=== PATIENT | male | born 1945 | race Caucasian/White ===

== ENCOUNTER 2019-05-02 14:28 | Inpatient (IN) ==
[2019-05-02] MEDS ORDERED: Naloxone 0.4 MG/ML INJ IVP PRN (17:14)
[2019-05-02] MEDS ORDERED: methylPREDNISolone 125 MG/2 ML VIAL IVP ONE (17:23)
[2019-05-02] MEDS ORDERED: *HR* Warfarin 2 MG TABLET PO SCH (17:30)
[2019-05-02] MEDS ORDERED: Warfarin perPT PO PRN (18:03)
[2019-05-02 18:04] LABS: White Blood Count 20.4 K/mcL (4.3-11.1)
[2019-05-02 18:05] LABS: Basophils # 0.1 K/mcL (0.0-0.2); Basophils % 0.3 %; Hematocrit 41.2 % (37.5-50.1); Hemoglobin 12.8 g/dL (12.9-16.9); Immature Granulocytes % 0.9 % (0-4); Lymphocytes % 4.9 %; Mean Corpuscular HGB Conc 31.1 g/dL (31.6-35.5); Mean Corpuscular Hemoglobin 29.2 pg (28.0-33.3); Mean Corpuscular Volume 94.1 fL (83.0-100.0); Mean Platelet Volume 10.7 fL (9.4-12.4); Monocytes # 2.5 K/mcL (0.0-1.3); Monocytes % 12.4 %; Neutrophils # 16.6 K/mcL (1.6-8.9); Platelet Count 218 K/mcL (140-400); Red Blood Count 4.38 M/mcL (4.19-5.50); Red Cell Distribution Width 17.2 % (11.5-14.5); Segmented Neutrophils % 81.5 %
[2019-05-02] MEDS ORDERED: *HR* Warfarin 3 MG TABLET PO ONE (18:15)
[2019-05-02 18:24] LABS: Potassium 4.7 mEq/L (3.5-5.1)
[2019-05-02 18:25] LABS: Albumin 3.4 g/dL (3.5-5.7); Bilirubin,Direct 0.3 mg/dL (0.0-0.2); Bilirubin,Indirect 0.5 mg/dL (0.0-1.0); Bilirubin,Total 0.8 mg/dL (0.3-1.0); Globulin 3.3 g/dL (2.4-3.5); Total Protein 6.7 g/dL (6.4-8.9)
[2019-05-02] MEDS: Ipratropium/Albuterol Neb 3 ML IH SCH ×2 (18:55)
[2019-05-02] MEDS ORDERED: *HR* Heparin 5,000 UNIT/ML VIAL IVP ONE (19:28)
[2019-05-02] MEDS ORDERED: *HR* Heparin 5,000 UNIT/ML VIAL IVP PRN ×2 (19:28)
[2019-05-02] MEDS ORDERED: Heparin 25,000 UNIT/250 ML D5W 25,000 UNIT/250 ML IV.SOLN IVC SCH (19:30)
[2019-05-02] MEDS ORDERED: Ondansetron ODT 4 MG TAB.RAPDIS SL PRN (20:41)
[2019-05-02] MEDS ORDERED: Nitroglycerin 0.4 MG TAB.SUBL SL PRN (20:41)
[2019-05-02] MEDS ORDERED: 0.9 % Sodium Chloride 1,000 ML IVC SCH (20:45)
[2019-05-02] MEDS: Piperacillin/Tazobactam 3.375 GM in 0.9 % Sodium Chloride Mini Bag 100 ML IVPB SCH ×2 (21:08→22:52)
[2019-05-02] MEDS: MethylPREDNISolone 40 MG/ML VIAL IVP SCH (23:43)
[2019-05-03] MEDS: Ipratropium/Albuterol Neb 3 ML IH SCH ×7 (00:38→23:27)
[2019-05-03 05:25] LABS: Basophils % 0.1 %; Hematocrit 38.9 % (37.5-50.1); Hemoglobin 12.5 g/dL (12.9-16.9); Lymphocytes # 0.5 K/mcL (0.6-4.6); Lymphocytes % 2.7 %; Mean Corpuscular HGB Conc 32.1 g/dL (31.6-35.5); Mean Corpuscular Hemoglobin 30.5 pg (28.0-33.3); Mean Corpuscular Volume 94.9 fL (83.0-100.0); Monocytes # 0.4 K/mcL (0.0-1.3); Monocytes % 2.2 %; Neutrophils # 17.6 K/mcL (1.6-8.9); Platelet Count 202 K/mcL (140-400); Red Cell Distribution Width 17.1 % (11.5-14.5); White Blood Count 18.7 K/mcL (4.3-11.1)
[2019-05-03 05:44] LABS: Calcium 8.7 mg/dL (8.6-10.3); Potassium 5.2 mEq/L (3.5-5.1)
[2019-05-03 05:45] LABS: Chol/HDL Ratio 3.9 (0-4.9)
[2019-05-03 05:54] LABS: INR 1.7
[2019-05-03 06:00] LABS: Thyroid Stimulating Hormone 1.364 mcIU/mL (0.340-5.600)
[2019-05-03 06:23] LABS: Folate > 22.3 ng/mL (3.0-16.0); Vitamin B12 406 pg/mL (250-1100)
[2019-05-03] MEDS: Piperacillin/Tazobactam 3.375 GM in 0.9 % Sodium Chloride Mini Bag 100 ML IVPB SCH ×2 (08:52→16:55)
[2019-05-03] MEDS: Aspirin Enteric Coated 81 MG Tablet PO SCH (08:52)
[2019-05-03] MEDS: MethylPREDNISolone 40 MG/ML VIAL IVP SCH (08:52)
[2019-05-03] MEDS ORDERED: RaNITIdine Oral Soln 75 MG/5 ML UDC PO SCH (09:00)
[2019-05-03] MEDS ORDERED: Metoprolol 100 MG TABLET PO SCH (09:00)
[2019-05-03] MEDS ORDERED: *HR* Dextrose 50 % in Water (Syg) 50 ML SYRINGE IVP PRN (09:17)
[2019-05-03] MEDS ORDERED: D5% in Water 1,000 ML IVC PRN (09:17)
[2019-05-03] MEDS ORDERED: Dextrose Gel 15 GM/37.5 ML TUBE PO PRN ×2 (09:17)
[2019-05-03 09:35] LABS: Troponin I 0.09 ng/mL (< 0.04)
[2019-05-03] MEDS ORDERED: Insulin LISPRO 300 UNITS/3 ML VIAL SQ SCH (12:00)
[2019-05-03] MEDS ORDERED: 0.9 % Sodium Chloride 1,000 ML IVC SCH (14:15)
[2019-05-03] MEDS ORDERED: Insulin LISPRO 300 UNITS/3 ML VIAL SQ ONE (14:20)
[2019-05-03] MEDS: Insulin LISPRO 300 UNITS/3 ML VIAL SQ SCH ×3 (17:04→21:48)
[2019-05-03] MEDS ORDERED: Warfarin perPT PO PRN (18:00)
[2019-05-03] MEDS ORDERED: *HR* Warfarin 3 MG TABLET PO ONE (18:00)
[2019-05-03] MEDS ORDERED: NON-FORMULARY MEDICATION 1 EACH EACH (Ranitidine Hcl [Zantac] 150 MG) PO SCH (21:00)
[2019-05-03] MEDS ORDERED: Famotidine 20 MG TABLET PO SCH (21:00)
[2019-05-03] MEDS: Gabapentin 300 MG CAPSULE PO SCH (21:47)
[2019-05-03] MEDS: Famotidine 20 MG TABLET PO SCH (23:29)
[2019-05-04] MEDS: Piperacillin/Tazobactam 3.375 GM in 0.9 % Sodium Chloride Mini Bag 100 ML IVPB SCH ×4 (00:11→23:47)
[2019-05-04] MEDS: Ipratropium/Albuterol Neb 3 ML IH SCH ×7 (02:27→19:48)
[2019-05-04 05:50] LABS: Basophils % 0.2 %; Hematocrit 39.3 % (37.5-50.1); Hemoglobin 12.3 g/dL (12.9-16.9); Immature Granulocytes % 1.8 % (0-4); Lymphocytes # 0.5 K/mcL (0.6-4.6); Mean Corpuscular HGB Conc 31.3 g/dL (31.6-35.5); Mean Corpuscular Hemoglobin 29.4 pg (28.0-33.3); Mean Platelet Volume 11.2 fL (9.4-12.4); Monocytes # 1.4 K/mcL (0.0-1.3); Monocytes % 5.8 %; Neutrophils # 21.1 K/mcL (1.6-8.9); Platelet Count 212 K/mcL (140-400); Red Blood Count 4.18 M/mcL (4.19-5.50); Red Cell Distribution Width 16.8 % (11.5-14.5); Segmented Neutrophils % 90.2 %; White Blood Count 23.4 K/mcL (4.3-11.1)
[2019-05-04 05:54] LABS: Basophils # 0.1 K/mcL (0.0-0.2)
[2019-05-04 05:55] LABS: Platelet Estimate Normal (Normal)
[2019-05-04 05:57] LABS: Prothrombin Time 22.3 Seconds (9.4-12.1)
[2019-05-04 06:14] LABS: Calcium 8.8 mg/dL (8.6-10.3); Potassium 4.5 mEq/L (3.5-5.1)
[2019-05-04] MEDS: Gabapentin 300 MG CAPSULE PO SCH ×3 (08:27→21:28)
[2019-05-04] MEDS: Cholecalciferol (D-3) 1,000 UNIT (25MCG) TABLET PO SCH (08:27)
[2019-05-04] MEDS: Aspirin Enteric Coated 81 MG Tablet PO SCH (08:27)
[2019-05-04] MEDS: Insulin LISPRO 300 UNITS/3 ML VIAL SQ SCH ×4 (08:27→21:27)
[2019-05-04] MEDS: Furosemide 40 MG TABLET PO SCH (09:16)
[2019-05-04] MEDS ORDERED: Gadolinium Contrast Agent (WT Based) IV PRN ×2 (10:29→15:20)
[2019-05-04] MEDS ORDERED: Isovue-370 500 ML BOTTLE IVP ONE (10:44)
[2019-05-04] MEDS ORDERED: 0.9 % Sodium Chloride 1,000 ML IVC SCH (11:00)
[2019-05-04] MEDS ORDERED: 0.9 % Sodium Chloride 500 ML IVC SCH (12:00)
[2019-05-04] MEDS: Insulin DETEMIR 100 UNIT/ML X5UNITS SQ SCH ×2 (14:28→21:27)
[2019-05-04] MEDS ORDERED: MethylPREDNISolone 40 MG/ML VIAL IVP SCH (16:00)
[2019-05-04 16:34] LABS: Estimated Average Glucose 160 mg/dl
[2019-05-04] MEDS ORDERED: Furosemide 20 MG TABLET PO SCH (18:00)
[2019-05-04] MEDS ORDERED: *HR* Warfarin 3 MG TABLET PO ONE (18:00)
[2019-05-04] MEDS: Famotidine 20 MG TABLET PO SCH (21:23)
[2019-05-05] MEDS: Ipratropium/Albuterol Neb 3 ML IH SCH ×7 (00:15→23:58)
[2019-05-05 06:08] LABS: Basophils % 0.2 %; Hemoglobin 12.3 g/dL (12.9-16.9); Lymphocytes % 6.5 %; Mean Corpuscular HGB Conc 30.8 g/dL (31.6-35.5); Mean Corpuscular Hemoglobin 29.3 pg (28.0-33.3); Mean Corpuscular Volume 95.2 fL (83.0-100.0); Mean Platelet Volume 11.1 fL (9.4-12.4); Monocytes # 1.6 K/mcL (0.0-1.3); Monocytes % 10.3 %; Neutrophils # 12.6 K/mcL (1.6-8.9); Platelet Count 211 K/mcL (140-400); Red Cell Distribution Width 17.1 % (11.5-14.5); White Blood Count 15.4 K/mcL (4.3-11.1)
[2019-05-05 06:10] LABS: INR 2.5
[2019-05-05 06:32] LABS: Calcium 9.1 mg/dL (8.6-10.3); Potassium 4.6 mEq/L (3.5-5.1)
[2019-05-05] MEDS: Piperacillin/Tazobactam 3.375 GM in 0.9 % Sodium Chloride Mini Bag 100 ML IVPB SCH ×3 (08:35→23:38)
[2019-05-05] MEDS: Insulin LISPRO 300 UNITS/3 ML VIAL SQ SCH ×4 (08:38→23:06)
[2019-05-05] MEDS: Insulin DETEMIR 100 UNIT/ML X5UNITS SQ SCH ×2 (08:40→20:41)
[2019-05-05] MEDS: Aspirin Enteric Coated 81 MG Tablet PO SCH (10:53)
[2019-05-05] MEDS: Cholecalciferol (D-3) 1,000 UNIT (25MCG) TABLET PO SCH (10:53)
[2019-05-05] MEDS: Gabapentin 300 MG CAPSULE PO SCH ×3 (10:53→20:41)
[2019-05-05] MEDS ORDERED: *HR* Warfarin 3 MG TABLET PO ONE (18:00)
[2019-05-05] MEDS: Famotidine 20 MG TABLET PO SCH (20:41)
[2019-05-06 02:48] LABS: Basophils # 0.1 K/mcL (0.0-0.2); Basophils % 0.4 %; Eosinophils % 0.1 %; Hematocrit 38.3 % (37.5-50.1); Immature Granulocytes % 1.7 % (0-4); Lymphocytes # 1.4 K/mcL (0.6-4.6); Lymphocytes % 10.8 %; Mean Corpuscular HGB Conc 31.3 g/dL (31.6-35.5); Mean Corpuscular Volume 95.8 fL (83.0-100.0); Mean Platelet Volume 11.2 fL (9.4-12.4); Monocytes # 1.7 K/mcL (0.0-1.3); Monocytes % 12.9 %; Neutrophils # 9.8 K/mcL (1.6-8.9); Platelet Count 206 K/mcL (140-400); Segmented Neutrophils % 74.1 %; White Blood Count 13.2 K/mcL (4.3-11.1)
[2019-05-06 03:00] LABS: BUN/Creatinine Ratio 28 (6-26); Blood Urea Nitrogen 38 mg/dL (8-23); Calcium 8.9 mg/dL (8.6-10.3); Carbon Dioxide 27 mEq/L (23-29); Chloride 109 mEq/L (98-107); Glucose 81 mg/dL (70-105); Osmolality,Calculated 304 (280-300); Potassium 4.2 mEq/L (3.5-5.1); Sodium 143 mEq/L (136-145); eGFR For African Americans > 60 (> 60); eGFR For Non-African Americans 52 (> 60)
[2019-05-06 03:02] LABS: INR 2.4; Prothrombin Time 27.2 Seconds (9.4-12.1)
[2019-05-06] MEDS: Ipratropium/Albuterol Neb 3 ML IH SCH ×7 (03:46→23:58)
[2019-05-06] MEDS ORDERED: Lidocaine 1% 20 ML MDV ONE (07:34)
[2019-05-06] MEDS ORDERED: *HR* Propofol 200 MG/20 ML VIAL IVP ONE (07:52)
[2019-05-06] MEDS ORDERED: Lidocaine -MPF 2% 2 ML VIAL ONE (07:54)
[2019-05-06] MEDS ORDERED: Vancomycin 1,000 MG, 0.9 % Sodium Chloride 1,000 ML IR ONE (08:00)
[2019-05-06] MEDS: Insulin DETEMIR 100 UNIT/ML X5UNITS SQ SCH ×2 (09:19→21:53)
[2019-05-06] MEDS: Insulin LISPRO 300 UNITS/3 ML VIAL SQ SCH ×4 (09:19→21:53)
[2019-05-06] MEDS: Gabapentin 300 MG CAPSULE PO SCH ×3 (09:29→21:53)
[2019-05-06] MEDS: Aspirin Enteric Coated 81 MG Tablet PO SCH (09:29)
[2019-05-06] MEDS: Cholecalciferol (D-3) 1,000 UNIT (25MCG) TABLET PO SCH (09:29)
[2019-05-06] MEDS: Piperacillin/Tazobactam 3.375 GM in 0.9 % Sodium Chloride Mini Bag 100 ML IVPB SCH ×2 (09:29→16:30)
[2019-05-06] MEDS ORDERED: Furosemide 40 MG/4 ML VIAL IVP ONE (12:46)
[2019-05-06] MEDS: Acetaminophen 325 MG TABLET PO PRN (12:47)
[2019-05-06] MEDS ORDERED: *HR* Warfarin 3 MG TABLET PO ONE (18:00)
[2019-05-06] MEDS: Famotidine 20 MG TABLET PO SCH (21:53)
[2019-05-07] MEDS: Piperacillin/Tazobactam 3.375 GM in 0.9 % Sodium Chloride Mini Bag 100 ML IVPB SCH ×3 (00:26→15:16)
[2019-05-07] MEDS: *HR* HYDROcodone/Acet 5/325 mg TABLET PO PRN ×2 (02:32→15:06)
[2019-05-07] MEDS: Ipratropium/Albuterol Neb 3 ML IH SCH ×6 (03:51→23:25)
[2019-05-07 03:52] LABS: Basophils # 0.1 K/mcL (0.0-0.2); Basophils % 0.7 %; Eosinophils % 0.3 %; Hematocrit 40.4 % (37.5-50.1); Hemoglobin 12.8 g/dL (12.9-16.9); Lymphocytes # 1.2 K/mcL (0.6-4.6); Lymphocytes % 8.9 %; Mean Corpuscular HGB Conc 31.7 g/dL (31.6-35.5); Mean Corpuscular Hemoglobin 29.8 pg (28.0-33.3); Mean Platelet Volume 10.8 fL (9.4-12.4); Monocytes # 1.3 K/mcL (0.0-1.3); Monocytes % 9.6 %; Neutrophils # 10.8 K/mcL (1.6-8.9); Platelet Count 209 K/mcL (140-400); Red Cell Distribution Width 16.6 % (11.5-14.5); Segmented Neutrophils % 78.5 %; White Blood Count 13.7 K/mcL (4.3-11.1)
[2019-05-07 04:01] LABS: INR 2.4; Prothrombin Time 27.3 Seconds (9.4-12.1)
[2019-05-07 04:08] LABS: BUN/Creatinine Ratio 22 (6-26); Blood Urea Nitrogen 28 mg/dL (8-23); Calcium 9.2 mg/dL (8.6-10.3); Carbon Dioxide 32 mEq/L (23-29); Chloride 102 mEq/L (98-107); Glucose 105 mg/dL (70-105); Osmolality,Calculated 302 (280-300); Potassium 3.8 mEq/L (3.5-5.1); Sodium 143 mEq/L (136-145); eGFR For African Americans > 60 (> 60); eGFR For Non-African Americans 55 (> 60)
[2019-05-07] MEDS: Insulin LISPRO 300 UNITS/3 ML VIAL SQ SCH ×4 (07:33→21:35)
[2019-05-07] MEDS: Gabapentin 300 MG CAPSULE PO SCH ×3 (09:06→21:35)
[2019-05-07] MEDS: Cholecalciferol (D-3) 1,000 UNIT (25MCG) TABLET PO SCH (09:06)
[2019-05-07] MEDS: Furosemide 40 MG TABLET PO SCH (09:06)
[2019-05-07] MEDS: Aspirin Enteric Coated 81 MG Tablet PO SCH (09:06)
[2019-05-07] MEDS: Insulin DETEMIR 100 UNIT/ML X5UNITS SQ SCH ×2 (09:07→21:35)
[2019-05-07] MEDS ORDERED: *HR* Warfarin 3 MG TABLET PO ONE (18:00)
[2019-05-07] MEDS: Famotidine 20 MG TABLET PO SCH (21:35)
[2019-05-08] MEDS: Piperacillin/Tazobactam 3.375 GM in 0.9 % Sodium Chloride Mini Bag 100 ML IVPB SCH ×3 (00:06→15:12)
[2019-05-08] MEDS: Ipratropium/Albuterol Neb 3 ML IH SCH ×5 (03:40→19:50)
[2019-05-08 05:38] LABS: INR 2.3; Prothrombin Time 25.7 Seconds (9.4-12.1)
[2019-05-08] MEDS: Insulin LISPRO 300 UNITS/3 ML VIAL SQ SCH ×4 (07:21→20:42)
[2019-05-08] MEDS: Cholecalciferol (D-3) 1,000 UNIT (25MCG) TABLET PO SCH (07:27)
[2019-05-08] MEDS: Aspirin Enteric Coated 81 MG Tablet PO SCH (07:27)
[2019-05-08] MEDS: Acetaminophen 325 MG TABLET PO PRN (07:27)
[2019-05-08] MEDS: Furosemide 40 MG TABLET PO SCH (07:28)
[2019-05-08] MEDS: Gabapentin 300 MG CAPSULE PO SCH ×3 (07:28→20:43)
[2019-05-08] MEDS: Insulin DETEMIR 100 UNIT/ML X5UNITS SQ SCH ×2 (07:43→20:43)
[2019-05-08 12:20] LABS: Basophils # 0.1 K/mcL (0.0-0.2); Basophils % 0.6 %; Eosinophils % 0.2 %; Hemoglobin 13.2 g/dL (12.9-16.9); Immature Granulocytes % 2.8 % (0-4); Lymphocytes % 5.9 %; Mean Corpuscular HGB Conc 32.2 g/dL (31.6-35.5); Mean Corpuscular Hemoglobin 30.1 pg (28.0-33.3); Mean Corpuscular Volume 93.6 fL (83.0-100.0); Monocytes # 1.3 K/mcL (0.0-1.3); Monocytes % 7.7 %; Neutrophils # 13.5 K/mcL (1.6-8.9); Platelet Count 245 K/mcL (140-400); Red Blood Count 4.38 M/mcL (4.19-5.50); Red Cell Distribution Width 16.4 % (11.5-14.5); Segmented Neutrophils % 82.8 %; White Blood Count 16.3 K/mcL (4.3-11.1)
[2019-05-08] MEDS: *HR* HYDROcodone/Acet 5/325 mg TABLET PO PRN ×2 (16:23→20:43)
[2019-05-08 16:47] LABS: Adenovirus Not Detected (Not Detect); Bordetella Pertussis Not Detected (Not Detect); Chlamydophila pneumoniae Not Detected (Not Detect); Coronavirus 229E Not Detected (Not Detect); Coronavirus HKU1 Not Detected (Not Detect); Coronavirus NL63 Not Detected (Not Detect); Coronavirus OC43 Not Detected (Not Detect); Human Metapneumovirus Not Detected (Not Detect); Human Rhinovirus/Enterovirus DETECTED (Not Detect); Influenza A Subtype 2009 H1 Not Detected (Not Detect); Influenza B Not Detected (Not Detect); Mycoplasma pneumoniae Not Detected (Not Detect); Parainfluenza Virus 1 Not Detected (Not Detect); Parainfluenza Virus 2 Not Detected (Not Detect); Parainfluenza Virus 3 Not Detected (Not Detect); Parainfluenza Virus 4 Not Detected (Not Detect); Respiratory Syncytial Virus Not Detected (Not Detect)
[2019-05-08] MEDS ORDERED: *HR* Warfarin 3 MG TABLET PO ONE (18:00)
[2019-05-08] MEDS: Famotidine 20 MG TABLET PO SCH (20:43)
[2019-05-09] MEDS: Piperacillin/Tazobactam 3.375 GM in 0.9 % Sodium Chloride Mini Bag 100 ML IVPB SCH ×3 (00:16→16:58)
[2019-05-09] MEDS: Ipratropium/Albuterol Neb 3 ML IH SCH ×6 (00:26→20:20)
[2019-05-09 05:38] LABS: VBG HCO3 33 mEq/L (21-27); VBG PCO2 55 mmHg (41-51); VBG PH 7.39 pH Units (7.32-7.42); VBG PO2 128 mmHg (25-50)
[2019-05-09 05:41] LABS: Basophils # 0.1 K/mcL (0.0-0.2); Basophils % 0.8 %; Eosinophils # 0.1 K/mcL (0.0-0.6); Eosinophils % 0.5 %; Hematocrit 41.4 % (37.5-50.1); Immature Granulocytes % 4.1 % (0-4); Lymphocytes # 1.2 K/mcL (0.6-4.6); Lymphocytes % 8.6 %; Mean Corpuscular HGB Conc 31.4 g/dL (31.6-35.5); Mean Corpuscular Hemoglobin 29.1 pg (28.0-33.3); Mean Corpuscular Volume 92.8 fL (83.0-100.0); Monocytes # 1.3 K/mcL (0.0-1.3); Monocytes % 9.2 %; Neutrophils # 11.1 K/mcL (1.6-8.9); Platelet Count 252 K/mcL (140-400); Red Blood Count 4.46 M/mcL (4.19-5.50); Red Cell Distribution Width 16.3 % (11.5-14.5); Segmented Neutrophils % 76.8 %; White Blood Count 14.5 K/mcL (4.3-11.1)
[2019-05-09 05:54] LABS: INR 2.1; Prothrombin Time 23.6 Seconds (9.4-12.1)
[2019-05-09 05:58] LABS: Calcium 8.8 mg/dL (8.6-10.3); Potassium 3.3 mEq/L (3.5-5.1)
[2019-05-09] MEDS: Insulin LISPRO 300 UNITS/3 ML VIAL SQ SCH ×3 (08:34→18:05)
[2019-05-09] MEDS: Furosemide 40 MG TABLET PO SCH (08:49)
[2019-05-09] MEDS: Gabapentin 300 MG CAPSULE PO SCH ×2 (08:49→16:57)
[2019-05-09] MEDS: Cholecalciferol (D-3) 1,000 UNIT (25MCG) TABLET PO SCH (08:49)
[2019-05-09] MEDS: Aspirin Enteric Coated 81 MG Tablet PO SCH (08:49)
[2019-05-09] MEDS: Insulin DETEMIR 100 UNIT/ML X5UNITS SQ SCH (08:54)
[2019-05-09] MEDS: *HR* HYDROcodone/Acet 5/325 mg TABLET PO PRN (09:53)
[2019-05-09 16:55] VITALS: BP 151/77
[2019-05-09] MEDS ORDERED: *HR* Warfarin 3 MG TABLET PO ONE (18:00)
[2019-05-10] MEDS: Ipratropium/Albuterol Neb 3 ML IH SCH (00:21)
== END 2019-05-10 06:50 | DRG 853 ==
LOC: 2ANU → SUATTDRO 16:45 → 2ANU 05-10 01:18
PROVIDERS: ADMIT Pharmacist; ATTEND Internal Medicine

== ENCOUNTER 2019-05-12 09:49 | Inpatient (IN) ==
[2019-05-12] MEDS ORDERED: 0.9 % Sodium Chloride 1,000 ML IVC ONE (09:57)
[2019-05-12] MEDS ORDERED: Ipratropium/Albuterol Neb 3 ML IH ONE (10:11)
[2019-05-12] MEDS ORDERED: Piperacillin/Tazobactam 3.375 GM in 0.9 % Sodium Chloride Mini Bag 100 ML IVPB ONE (10:39)
[2019-05-12 10:45] LABS: Basophils # 0.1 K/mcL (0.0-0.2); Basophils % 0.6 %; Eosinophils % 0.1 %; Hematocrit 35.8 % (37.5-50.1); Immature Granulocytes % 3.5 % (0-4); Lymphocytes # 1.5 K/mcL (0.6-4.6); Lymphocytes % 9.1 %; Mean Corpuscular HGB Conc 30.2 g/dL (31.6-35.5); Mean Corpuscular Hemoglobin 28.7 pg (28.0-33.3); Mean Corpuscular Volume 95.2 fL (83.0-100.0); Mean Platelet Volume 10.7 fL (9.4-12.4); Monocytes # 2.1 K/mcL (0.0-1.3); Monocytes % 12.8 %; Platelet Count 291 K/mcL (140-400); Red Blood Count 3.76 M/mcL (4.19-5.50); Red Cell Distribution Width 16.7 % (11.5-14.5); Segmented Neutrophils % 73.9 %; White Blood Count 16.2 K/mcL (4.3-11.1)
[2019-05-12 10:47] LABS: ABG Base Excess -1 mEq/L (-2 to 3); ABG HCO3 28 mEq/L (21-27); ABG Oxygen Saturation 96 % (95-98); ABG PCO2 62 mmHg (35-45); ABG PH 7.26 pH Units (7.32-7.45); ABG PO2 97 mmHg (85-104); ABG TCO2 30 mEq/L (20-26)
[2019-05-12 10:48] LABS: Hemoglobin 10.8 g/dL (12.9-16.9)
[2019-05-12 11:09] LABS: Alanine Aminotransferase 22 Units/L (7-52); Albumin 3.2 g/dL (3.5-5.7); Alkaline Phosphatase 57 Units/L (34-104); Aspartate Amino Transferase 24 Units/L (13-39); BUN/Creatinine Ratio 17 (6-26); Bilirubin,Direct 0.1 mg/dL (0.0-0.2); Bilirubin,Indirect 0.5 mg/dL (0.0-1.0); Bilirubin,Total 0.6 mg/dL (0.3-1.0); Blood Urea Nitrogen 54 mg/dL (8-23); C-Reactive Protein > 300 mg/L (Less than 10); Calcium 8.8 mg/dL (8.6-10.3); Carbon Dioxide 24 mEq/L (23-29); Chloride 103 mEq/L (98-107); Globulin 3.3 g/dL (2.4-3.5); Glucose 152 mg/dL (70-105); Osmolality,Calculated 306 (280-300); Potassium 4.5 mEq/L (3.5-5.1); Sodium 139 mEq/L (136-145); Total Protein 6.5 g/dL (6.4-8.9); Troponin I 0.12 ng/mL (< 0.04); eGFR For African Americans 23 (> 60); eGFR For Non-African Americans 19 (> 60)
[2019-05-12] MEDS ORDERED: Naloxone 0.4 MG/ML INJ IVP PRN (11:41)
[2019-05-12] MEDS ORDERED: Ondansetron 4 MG/2 ML VIAL IVP PRN (11:41)
[2019-05-12 12:01] LABS: INR 2.6; Prothrombin Time 29.9 Seconds (9.4-12.1)
[2019-05-12 12:03] LABS: Activated Partial Thrombo Time 40.5 Seconds (26.0-36.0)
[2019-05-12 13:48] LABS: Bilirubin,Urine Moderate (Negative); Blood,Urine Negative (Negative); Clarity,Urine Clear (Clear); Color,Urine Dark Yellow (Yellow); Glucose,Urine (UA) Normal (Normal); Ketones,Urine Trace mg/dL (Negative); Leukocyte Esterase,Urine Negative (Negative); Nitrite,Urine Negative (Negative); Protein,Urine Trace mg/dL (Neg-Trace); Specific Gravity,Urine 1.022 (1.010-1.025); Urobilinogen,Urine Normal (Normal)
[2019-05-12] MEDS ORDERED: D5% in Water 1,000 ML IVC PRN (13:53)
[2019-05-12] MEDS ORDERED: *HR* Dextrose 50 % in Water (Syg) 50 ML SYRINGE IVP PRN (13:53)
[2019-05-12] MEDS ORDERED: Dextrose Gel 15 GM/37.5 ML TUBE PO PRN ×2 (13:53)
[2019-05-12] MEDS ORDERED: Acetaminophen 325 MG TABLET PO PRN (13:57)
[2019-05-12] MEDS: Ringers Solution, Lactated 1,000 ML IVC SCH ×2 (14:27→22:02)
[2019-05-12] MEDS: Acetaminophen IV 1,000 MG/100 ML INFUS..BTL IVPB SCH ×2 (15:21→21:39)
[2019-05-12] MEDS: Albuterol 2.5 MG/3 ML NEBULIZER IH SCH ×3 (16:11→23:32)
[2019-05-12] MEDS ORDERED: 0.9 % Sodium Chloride 500 ML IV ONE (17:03)
[2019-05-12] MEDS: Insulin LISPRO 300 UNITS/3 ML VIAL SQ SCH ×2 (17:33→22:03)
[2019-05-12] MEDS ORDERED: Warfarin perPT PO PRN (18:00)
[2019-05-12] MEDS ORDERED: *HR* Warfarin 1 MG TABLET PO ONE ×2 (18:00)
[2019-05-12] MEDS: Magnesium Oxide 400 MG TABLET PO SCH (18:04)
[2019-05-12] MEDS: Nystatin SUSP 5 ML UD.LIQ PO SCH ×2 (18:04→21:43)
[2019-05-12] MEDS ORDERED: Insulin DETEMIR 100 UNIT/ML X5UNITS SQ SCH (21:00)
[2019-05-12] MEDS: Piperacillin/Tazobactam 3.375 GM in 0.9 % Sodium Chloride Mini Bag 100 ML IVPB SCH (21:58)
[2019-05-12] MEDS: Insulin DETEMIR 100 UNIT/ML X5UNITS SQ SCH (22:04)
[2019-05-13] MEDS: Albuterol 2.5 MG/3 ML NEBULIZER IH SCH ×3 (03:05→11:07)
[2019-05-13] MEDS: Acetaminophen IV 1,000 MG/100 ML INFUS..BTL IVPB SCH ×4 (03:23→20:41)
[2019-05-13 04:09] LABS: ABG Base Excess 2 mEq/L (-2 to 3); ABG HCO3 29 mEq/L (21-27); ABG Oxygen Saturation 95 % (95-98); ABG PCO2 55 mmHg (35-45); ABG PH 7.33 pH Units (7.32-7.45); ABG PO2 82 mmHg (85-104); ABG TCO2 30 mEq/L (20-26); Blood Gas Modality BiLevel
[2019-05-13] MEDS: Insulin LISPRO 300 UNITS/3 ML VIAL SQ SCH ×4 (07:58→20:02)
[2019-05-13] MEDS: Famotidine 20 MG TABLET PO SCH (07:58)
[2019-05-13] MEDS: Aspirin Enteric Coated 81 MG Tablet PO SCH (07:58)
[2019-05-13] MEDS: Nystatin SUSP 5 ML UD.LIQ PO SCH ×4 (07:59→19:42)
[2019-05-13] MEDS: Collagenase Oint 1 APPL GRAM TP SCH (09:53)
[2019-05-13 10:14] LABS: Basophils # 0.1 K/mcL (0.0-0.2); Basophils % 0.4 %; Eosinophils % 0.2 %; Hematocrit 35.2 % (37.5-50.1); Hemoglobin 10.7 g/dL (12.9-16.9); Immature Granulocytes % 1.7 % (0-4); Lymphocytes # 0.9 K/mcL (0.6-4.6); Lymphocytes % 5.7 %; Mean Corpuscular HGB Conc 30.4 g/dL (31.6-35.5); Mean Corpuscular Hemoglobin 29.3 pg (28.0-33.3); Mean Corpuscular Volume 96.4 fL (83.0-100.0); Mean Platelet Volume 10.8 fL (9.4-12.4); Monocytes # 1.8 K/mcL (0.0-1.3); Monocytes % 11.2 %; Neutrophils # 12.7 K/mcL (1.6-8.9); Platelet Count 284 K/mcL (140-400); Red Blood Count 3.65 M/mcL (4.19-5.50); Red Cell Distribution Width 16.4 % (11.5-14.5); Segmented Neutrophils % 80.8 %; White Blood Count 15.7 K/mcL (4.3-11.1)
[2019-05-13 10:32] LABS: Calcium 8.8 mg/dL (8.6-10.3); Magnesium 2.3 mg/dL (1.6-2.6); Potassium 4.4 mEq/L (3.5-5.1)
[2019-05-13] MEDS: Piperacillin/Tazobactam 3.375 GM in 0.9 % Sodium Chloride Mini Bag 100 ML IVPB SCH ×2 (11:43→21:42)
[2019-05-13] MEDS ORDERED: Furosemide 20 MG/2 ML VIAL IVP SCH (13:00)
[2019-05-13] MEDS: MethylPREDNISolone 40 MG/ML VIAL IVP SCH (14:50)
[2019-05-13] MEDS: Ipratropium/Albuterol Neb 3 ML IH SCH ×3 (15:15→20:20)
[2019-05-13] MEDS: Budesonide/Formoterol 160/4.5 1 PUFF INH IH SCH ×2 (15:15→20:20)
[2019-05-13] MEDS: Magnesium Oxide 400 MG TABLET PO SCH (19:42)
[2019-05-13] MEDS: Insulin DETEMIR 100 UNIT/ML X5UNITS SQ SCH (20:40)
[2019-05-13] MEDS ORDERED: *HR* LORazepam 2 MG/ML VIAL IVP ONE (23:53)
[2019-05-14] MEDS: MethylPREDNISolone 40 MG/ML VIAL IVP SCH ×3 (00:01→17:36)
[2019-05-14] MEDS: Ipratropium/Albuterol Neb 3 ML IH SCH ×7 (00:10→23:31)
[2019-05-14] MEDS ORDERED: Haloperidol Lactate 5 MG/ML VIAL IVP ONE ×3 (01:56→07:52)
[2019-05-14] MEDS: Acetaminophen IV 1,000 MG/100 ML INFUS..BTL IVPB SCH ×4 (02:53→20:22)
[2019-05-14] MEDS: Aspirin Enteric Coated 81 MG Tablet PO SCH (07:31)
[2019-05-14] MEDS: Famotidine 20 MG TABLET PO SCH (07:31)
[2019-05-14] MEDS: Nystatin SUSP 5 ML UD.LIQ PO SCH ×4 (07:32→20:22)
[2019-05-14] MEDS: Collagenase Oint 1 APPL GRAM TP SCH (07:32)
[2019-05-14] MEDS: Insulin LISPRO 300 UNITS/3 ML VIAL SQ SCH ×4 (07:41→20:23)
[2019-05-14] MEDS: Budesonide/Formoterol 160/4.5 1 PUFF INH IH SCH ×2 (07:57→20:11)
[2019-05-14] MEDS: Piperacillin/Tazobactam 3.375 GM in 0.9 % Sodium Chloride Mini Bag 100 ML IVPB SCH ×2 (10:44→17:42)
[2019-05-14 14:10] LABS: Basophils % 0.2 %; Hematocrit 36.3 % (37.5-50.1); Hemoglobin 11.2 g/dL (12.9-16.9); Lymphocytes # 0.5 K/mcL (0.6-4.6); Lymphocytes % 2.8 %; Mean Corpuscular HGB Conc 30.9 g/dL (31.6-35.5); Mean Platelet Volume 11.1 fL (9.4-12.4); Monocytes # 0.3 K/mcL (0.0-1.3); Monocytes % 1.7 %; Platelet Count 314 K/mcL (140-400); Red Blood Count 3.86 M/mcL (4.19-5.50); Segmented Neutrophils % 94.3 %; White Blood Count 16.9 K/mcL (4.3-11.1)
[2019-05-14 14:32] LABS: Calcium 9.2 mg/dL (8.6-10.3); Magnesium 2.7 mg/dL (1.6-2.6); Phosphorous 3.3 mg/dL (2.7-4.5); Potassium 4.5 mEq/L (3.5-5.1)
[2019-05-14] MEDS: Magnesium Oxide 400 MG TABLET PO SCH (17:37)
[2019-05-14] MEDS: Insulin DETEMIR 100 UNIT/ML X5UNITS SQ SCH (20:24)
[2019-05-15] MEDS: MethylPREDNISolone 40 MG/ML VIAL IVP SCH ×2 (00:08→09:10)
[2019-05-15] MEDS: Piperacillin/Tazobactam 3.375 GM in 0.9 % Sodium Chloride Mini Bag 100 ML IVPB SCH ×3 (01:44→17:51)
[2019-05-15] MEDS: Acetaminophen IV 1,000 MG/100 ML INFUS..BTL IVPB SCH ×2 (03:08→09:17)
[2019-05-15] MEDS: Ipratropium/Albuterol Neb 3 ML IH SCH ×5 (03:49→20:14)
[2019-05-15 05:00] LABS: Basophils % 0.1 %; Hematocrit 35.2 % (37.5-50.1); Hemoglobin 11.1 g/dL (12.9-16.9); Lymphocytes # 0.5 K/mcL (0.6-4.6); Lymphocytes % 2.9 %; Mean Corpuscular HGB Conc 31.5 g/dL (31.6-35.5); Mean Corpuscular Hemoglobin 29.6 pg (28.0-33.3); Mean Corpuscular Volume 93.9 fL (83.0-100.0); Mean Platelet Volume 11.3 fL (9.4-12.4); Monocytes # 0.4 K/mcL (0.0-1.3); Monocytes % 2.6 %; Neutrophils # 15.2 K/mcL (1.6-8.9); Platelet Count 291 K/mcL (140-400); Red Blood Count 3.75 M/mcL (4.19-5.50); Red Cell Distribution Width 15.9 % (11.5-14.5); Segmented Neutrophils % 93.4 %; White Blood Count 16.3 K/mcL (4.3-11.1)
[2019-05-15 05:31] LABS: Calcium 9.2 mg/dL (8.6-10.3); Magnesium 2.8 mg/dL (1.6-2.6); Potassium 4.8 mEq/L (3.5-5.1)
[2019-05-15] MEDS: Famotidine 20 MG TABLET PO SCH (09:10)
[2019-05-15] MEDS: Nystatin SUSP 5 ML UD.LIQ PO SCH ×4 (09:11→21:22)
[2019-05-15] MEDS: Aspirin Enteric Coated 81 MG Tablet PO SCH (09:11)
[2019-05-15] MEDS: Insulin LISPRO 300 UNITS/3 ML VIAL SQ SCH ×2 (09:13→17:57)
[2019-05-15 09:41] LABS: INR 2.9; Prothrombin Time 33.4 Seconds (9.4-12.1)
[2019-05-15] MEDS: Budesonide/Formoterol 160/4.5 1 PUFF INH IH SCH ×2 (11:02→20:14)
[2019-05-15] MEDS ORDERED: Acetaminophen 325 MG TABLET PO PRN (11:55)
[2019-05-15] MEDS ORDERED: Insulin LISPRO 300 UNITS/3 ML VIAL SQ SCH (11:56)
[2019-05-15] MEDS: Insulin DETEMIR 100 UNIT/ML X5UNITS SQ SCH ×2 (13:30→21:23)
[2019-05-15] MEDS: Magnesium Oxide 400 MG TABLET PO SCH (17:52)
[2019-05-15] MEDS: Collagenase Oint 1 APPL GRAM TP SCH (17:55)
[2019-05-16] MEDS: Piperacillin/Tazobactam 3.375 GM in 0.9 % Sodium Chloride Mini Bag 100 ML IVPB SCH ×3 (02:04→17:15)
[2019-05-16] MEDS: Ipratropium/Albuterol Neb 3 ML IH SCH ×5 (04:23→15:48)
[2019-05-16 06:45] LABS: Basophils % 0.1 %; Hematocrit 33.2 % (37.5-50.1); Hemoglobin 10.6 g/dL (12.9-16.9); Immature Granulocytes % 0.8 % (0-4); Lymphocytes # 0.7 K/mcL (0.6-4.6); Lymphocytes % 6.1 %; Mean Corpuscular HGB Conc 31.9 g/dL (31.6-35.5); Mean Corpuscular Hemoglobin 29.8 pg (28.0-33.3); Mean Corpuscular Volume 93.3 fL (83.0-100.0); Mean Platelet Volume 10.5 fL (9.4-12.4); Monocytes # 0.8 K/mcL (0.0-1.3); Monocytes % 7.7 %; Neutrophils # 9.2 K/mcL (1.6-8.9); Platelet Count 272 K/mcL (140-400); Red Blood Count 3.56 M/mcL (4.19-5.50); Red Cell Distribution Width 15.9 % (11.5-14.5); Segmented Neutrophils % 85.3 %; White Blood Count 10.8 K/mcL (4.3-11.1)
[2019-05-16 07:04] LABS: BUN/Creatinine Ratio 33 (6-26); Blood Urea Nitrogen 44 mg/dL (8-23); Calcium 9.1 mg/dL (8.6-10.3); Carbon Dioxide 31 mEq/L (23-29); Chloride 106 mEq/L (98-107); Glucose 241 mg/dL (70-105); Magnesium 2.6 mg/dL (1.6-2.6); Osmolality,Calculated 311 (280-300); Phosphorous 1.9 mg/dL (2.7-4.5); Potassium 4.3 mEq/L (3.5-5.1); Sodium 141 mEq/L (136-145); eGFR For African Americans > 60 (> 60); eGFR For Non-African Americans 53 (> 60)
[2019-05-16] MEDS: Budesonide/Formoterol 160/4.5 1 PUFF INH IH SCH (07:27)
[2019-05-16] MEDS ORDERED: MethylPREDNISolone 40 MG/ML VIAL IVP SCH (09:00)
[2019-05-16] MEDS: Nystatin SUSP 5 ML UD.LIQ PO SCH ×3 (09:09→17:12)
[2019-05-16] MEDS: Famotidine 20 MG TABLET PO SCH (09:09)
[2019-05-16] MEDS: Aspirin Enteric Coated 81 MG Tablet PO SCH (09:09)
[2019-05-16] MEDS: Insulin DETEMIR 100 UNIT/ML X5UNITS SQ SCH (09:10)
[2019-05-16] MEDS: Collagenase Oint 1 APPL GRAM TP SCH (09:10)
[2019-05-16] MEDS: Insulin LISPRO 300 UNITS/3 ML VIAL SQ SCH ×3 (09:13→17:16)
[2019-05-16 17:10] VITALS: BP 178/96
[2019-05-16] MEDS: Magnesium Oxide 400 MG TABLET PO SCH (17:12)
== END 2019-05-16 17:53 | disposition short-term general hospital (02) | DRG 871 ==
LOC: EMEROOARM 09:49 → 3NENU 09:49 → 2ANU 16:37
PROVIDERS: ADMIT Internal Medicine; ATTEND Internal Medicine